=== PATIENT | female | born 1950 | race Caucasian/White ===

== ENCOUNTER 2021-09-11 06:50 | Day surgery (SDC) | payer MEDICARE ==
[~2021-09-11] VITALS: Ht 172.7 cm; Wt 93.4 kg
[~2021-09-11 06:50] MED LIST: BUME2 PO; BUPROPION PO; CARV25 PO; Combigan Eye Dro5 ML; DOXE50 PO; ESTR2 PO; GLIM4 PO; INVOKANA300 MG PO; K-Dur20 MEQ; LEVO-T175 MCG PO; LEVSOD200 PO; Lialda1.2 GM PO; MULVITMINF PO; OMEGA 3-6-9 PO; PRAV20 PO; Prinivil10 MG PO; TIZANIDINE HCL2 MG PO; TRADJENTA5 MG PO; UBID100 PO; VITAMIN D PO; [UNRECOGNIZED DRUG - OTHER] PO
--- NOTE | 2021-09-11 08:20 | NUR ---
09/11/21 0820 Agata Pleitez 0.15,L OF EPI 1MG/ML ADDED TO 30ML OF BUPIVICAINE 0.5% FOR A SOLUTION OF BUPIVICAINE 0.5% WITH EPI 1:200,000.
== END 2021-09-11 09:20 | disposition home or self-care (01) ==
LOC: ORSCSDS 06:50
PROVIDERS: Orthopaedic Surgery
PROC: 0LN70ZZ Release Right Hand Tendon, Open Approach (ICD-10-PCS; principal; 2021-09-11 08:00)
DX: M65.331 Trigger finger, right middle finger (principal); M65.321 Trigger finger, right index finger; I10 Essential (primary) hypertension; G47.33 Obstructive sleep apnea (adult) (pediatric); N18.9 Chronic kidney disease, unspecified; I63.9 Cerebral infarction, unspecified; E11.9 Type 2 diabetes mellitus without complications; Z79.899 Other long term (current) drug therapy; Z79.4 Long term (current) use of insulin
CPT/HCPCS: 82947; J0171; J0690; J2250; J2704

== ENCOUNTER 2024-10-08 11:47 | Emergency (ER) | payer MEDICARE ==
[~2024-10-08] VITALS: Ht 172.7 cm; Wt 91.6 kg
[2024-10-08 12:22] LABS: BASOPHILS ABSOLUTE AUTO 0.07 K/mm3 (0.00-0.23); BASOPHILS PERCENT AUTO 1 % (0-2); EOSINOPHILS ABSOLUTE AUTO 0.21 K/mm3 (0.00-0.68); EOSINOPHILS PERCENT AUTO 2 % (0-6); Hematocrit 42.9 % (33.0-51.0); Hemoglobin 14.4 g/dL (11.5-16.0); IMMATURE GRAN ABSOLUTE AUTO 0.04 K/mm3 (0.00-0.10); IMMATURE GRAN PERCENT AUTO 0 % (0-1); LYMPHOCYTES ABSOLUTE AUTO 2.43 K/mm3 (0.84-5.20); LYMPHOCYTES PERCENT AUTO 26 % (21-46); MONOCYTES ABSOLUTE AUTO 0.46 K/mm3 (0.16-1.47); MONOCYTES PERCENT AUTO 5 % (4-13); Mean Corpuscular HGB 30.2 pg (26.0-34.0); Mean Corpuscular HGB Conc 33.6 g/dL (31.5-36.5); Mean Corpuscular Volume 90 fL (80-100); Mean Platelet Volume 10.5 fL (9.1-12.4); NEUTROPHILS ABSOLUTE AUTO 5.99 K/mm3 (1.96-9.15); NEUTROPHILS PERCENT AUTO 65 % (41-73); Platelet Count 188 K/mm3 (150-400); RDW Coefficient Variation 14.8 % (11.7-14.2); RDW Standard Deviation 48.7 fL (35.1-46.3); Red Blood Cell Count 4.77 M/mm3 (3.80-5.20)
[2024-10-08 12:42] LABS: Albumin, Blood 3.4 g/dL (3.4-5.0); Albumin/Globulin Ratio 0.9 (0.8-1.8); Bilirubin, Total 0.5 mg/dL (0.1-1.0); Bun/Creatinine Ratio 15.3 (12.0-20.0); Calcium, Blood 9.7 mg/dL (8.5-10.1); Creatinine, Blood 1.18 mg/dL (0.40-1.00); Globulin, Blood 3.8 g/dL (2.2-4.0); Potassium, Blood 3.6 mmol/L (3.5-5.5); Total Protein, Blood 7.2 g/dL (6.4-8.2)
[2024-10-08 13:51] VITALS: BP 168/72
[2024-10-08] MEDS ORDERED: Lidocaine 4% 1 Patch TOP ONE (15:30)
== END 2024-10-08 16:46 | disposition home or self-care (01) ==
LOC: ER 11:47
PROVIDERS: Physician Assistant
DX: R07.81 Pleurodynia (principal); Z88.6 Allergy status to analgesic agent; Z88.0 Allergy status to penicillin; Z88.8 Allergy status to other drugs, medicaments and biological substances; Z91.011 Allergy to milk products; Z88.1 Allergy status to other antibiotic agents; Z79.890 Hormone replacement therapy; Z79.84 Long term (current) use of oral hypoglycemic drugs; Z79.899 Other long term (current) drug therapy
CPT/HCPCS: 71046; 80053; 83690; 84484; 85025; 85379; 93005; 93010; 99284-25; A9270